=== PATIENT | female | born 1935 | race Caucasian/White ===

== ENCOUNTER 2018-10-23 10:53 | Day surgery (SDC) | payer MEDICARE ==
[2018-10-19 13:53] VITALS: BMI 36.6
[2018-10-23] MEDS ORDERED: PROPOFOL 200 MG/20 ML VIAL ONE (11:39)
--- NOTE | 2018-10-23 13:25 | MRI ---
MRI LUMBAR SPINE:. HISTORY: Severe back pain. FINDINGS: Multiplanar multisequence noncontrast enhanced MRI images lumbar spine obtained. T11-12: Disc desiccation seen. There is irregularity involving the inferior endplate of T11 and the s uperior endplate of T12. There is a broad-based disc osteophyte complex centrally compressing the thecal sac resulting in moderate to severe thecal sac compression. There is severe bilateral neural f oraminal narrowing seen. T12-L1: There is fluid seen in the T12-L1 disc space. There is a broad-based central disc bulge compr essing the thecal sac resulting in severe central and lateral recess stenosis. There is some retropulsion of the L1 vertebral body posteriorly which adds to the degree of central stenosis. T2 si gnal abnormality is seen in the entire L1 level. There is significant height loss involving the L1 level. This may represent possible vertebra plana. I cannot differentiate between pathologic versus o steoporotic fractures of L1 Severe T12-L1 neural foraminal narrowing is seen due to neural foraminal encroachment by the facets as well as the retropulsed osseous fragments. L1-2: There is disc desiccation. There is herniation of the L1-2 disc into the superior endplate of L 2. There is a broad-based disc bulge and bilateral facet hypertrophy. This results in mild central stenosis. There is moderate to severe left and minimal right-sided neural foraminal narrowing due to osteophyte encroachment. L2-3: Disc desiccation is seen. There is a broad-based disc bulge with bilateral facet and ligamentum flavum hypertrophy resulting in a moderate degree of central and lateral recess stenosis. Moderate bilateral neural foraminal is seen. L3-4: Disc desiccation is seen. There is a broad-based disc bulge with bilateral facet and ligamentum flavum hypertrophy. This results in moderate to severe central and lateral recess stenosis. Moderate to severe bilateral neural foraminal narrowing also seen. L4-5: Disc desiccation is seen. There is a broad-based disc bulge with bilateral facet and ligamentum flavum hypertrophy resulting in moderate to severe central and lateral recess stenosis. There is severe right and moderate left-sided neural foraminal narrowing due to facet hypertrophy as well as t he protrusions extending to the neural foramen. L5-S1: Disc desiccation is seen. There is a broad-based disc bulge with bilateral facet hypertrophy. No significant degree of central stenosis seen. Moderate bilateral neural foraminal narrowing is seen. IMPRESSION: Extensive vertebral body height loss at L1 with signal abnormalities involving the entire vertebral b reid and retropulsion of some of the some of the osseous components into the spinal canal. Differential diagnosis includes osteoporotic fracture versus metastatic pathologic fracture. Transcribed Date/Time: 10/23/2018 1:36 PM
== END 2018-10-23 15:00 | disposition home or self-care (01) ==
LOC: SDC/OP 10:53
PROVIDERS: ATTEND Physical Medicine & Rehabilitation
DX: M48.07 Spinal stenosis, lumbosacral region (principal); M47.816 Spondylosis without myelopathy or radiculopathy, lumbar region; I10 Essential (primary) hypertension; E78.00 Pure hypercholesterolemia, unspecified; M19.90 Unspecified osteoarthritis, unspecified site; E07.9 Disorder of thyroid, unspecified; Z79.899 Other long term (current) drug therapy; Z96.642 Presence of left artificial hip joint; Z96.659 Presence of unspecified artificial knee joint; Z98.890 Other specified postprocedural states
CPT/HCPCS: 72148; J2704